=== PATIENT | female | born 1955 | race Two or more races ===

== ENCOUNTER → 2024-07-23 | Outpatient (CLI) | payer OTHER, MEDICAID, SELFPAY ==
--- NOTE | 2024-07-23 11:30 | XR_ITS ---
Examination: Pelvic ultrasound, transabdominal, complete Technique: Transabdominal ultrasound of the pelvis performed using grayscale imaging Date and time of exam: July 23, 2024 1127 hours INDICATIONS: Multiple uterine masses on pelvic sonogram November 03, 2023, the largest in the posterior uterine body 20 mm FINDINGS: Uterus 7.1 x 4.5 x 5.1 cm retroverted Uterine body mass 9 x 6 x 12 mm Hyperechoic mass in the lower uterine segment 19 x 20 x 25 mm Right ovary obscured by bowel gas Left ovary 16 x 13 x 15 mm arterial flow Endometrial stripe 0.7 cm IMPRESSION: Recommend transvaginal pelvic sonography follow-up to assess the lower uterine segment mass 19 x 20 x 25 mm
== END | disposition home or self-care (01) ==
PROVIDERS: PCP Internal Medicine; Referring Provider Internal Medicine; Visit Provider Internal Medicine
DX: D25.9 Leiomyoma of uterus, unspecified (principal)
CPT/HCPCS: 76856

== ENCOUNTER → 2024-08-10 | Outpatient (CLI) | payer OTHER, MEDICAID, SELFPAY ==
--- NOTE | 2024-08-10 15:30 | XR_ITS ---
Examination: Transvaginal ultrasound of the pelvis, complete Technique: Transvaginal sonographic images pelvis performed using shaffer scale imaging Exam date and time: August 10, 2024 1526 hours Indications, lower uterine segment mass 19 x 20 x 25 mm on pelvic sonogram July 23, 2024, pelvic pain history FINDINGS: Uterus 7.4 x 3.4 x 4.8 cm Endometrial stripe 0.9 cm Fundal uterine mass 2.0 x 1.8 x 2.2 cm Calcifications in the uterine body Right ovary 1.7 x 1.0 x 1.4 cm arterial flow Left ovary 1.6 x 1.1 x 1.4 cm arterial flow small calcifications IMPRESSION: 20 x 18 x 22 mm uterine fundal mass consistent with fibroid degeneration.
== END | disposition home or self-care (01) ==
PROVIDERS: PCP Internal Medicine; Referring Provider Internal Medicine; Visit Provider Internal Medicine
DX: R19.00 Intra-abdominal and pelvic swelling, mass and lump, unspecified site (principal)
CPT/HCPCS: 76830

== ENCOUNTER → 2024-08-31 | Outpatient (CLI) | payer OTHER, SELFPAY ==
--- NOTE | 2024-08-31 12:30 | XR_ITS ---
Examination: MRI lumbar spine without contrast Date and time of exam: August 31, 2024 1340 hours Comparison September 19, 2023 INDICATIONS: Low back pain beginning 3 years ago, radiating down the left leg Technique: Multiple MRI axial and sagittal sections lumbar spine. Sagittal T2-weighted images, TR 3500, TE 118 T1 weighted transverse sections, TR 688 T8.5, T2-weighted sagittal sections T1 weighted sagittal sections TR 621, TE 30 T2 axial sections, TR 4, 190, TE 84. Findings: Award Machine Operator film lumbar dextroscoliosis 30 degrees No lumbar fracture Diffuse lumbar disc desiccation Mild to moderate diffuse lumbar disc narrowing, most prominent L3-L4, L5-S1 No spondylolisthesis L5-S1 5 mm central lumbar disc bulge extending to the right intervertebral foramen with mild right L5 ganglionic compression L4-L5 6 mm central lumbar disc bulge partially extruded extending to the left foramen with mild left L4 ganglionic compression L3-L4 small foraminal disc bulges but no ganglionic compression L2-L3 no disc protrusion L1-L2 no disc protrusion IMPRESSION: Severe lumbar dextroscoliosis L5-S1 5 mm central lumbar disc bulge with mild right L5 ganglionic compression L4-5 6 mm central lumbar disc bulge with mild left L4 ganglionic compression
== END | disposition home or self-care (01) ==
PROVIDERS: PCP Internal Medicine; Referring Provider Internal Medicine; Visit Provider Internal Medicine
DX: M41.86 Other forms of scoliosis, lumbar region (principal); G95.20 Unspecified cord compression
CPT/HCPCS: 72148

== ENCOUNTER 2025-06-15 06:35 | Day surgery (SDC) | payer MEDICARE, SELFPAY ==
--- NOTE | 2025-06-12 07:33 | ESHP_ITS ---
RE: AMARA ZARATE : 1955 DATE OF ADMISSION: 06/15/2025 DATE OF SURGERY: 06/15/2025 This is a 69-year-old 3, para 3 with endometrial thickening and colposcopic biopsy showing a moderate cervical dysplasia, who presents for LEEP cone biopsy of the cervix and hysteroscopic exam and fractional dilatation and curettage. ALLERGIES: NO KNOWN DRUG ALLERGIES. MEDICATIONS: 1. Lisinopril 40 mg 1 p.o. daily. 2. Isosorbide 20 mg 1 p.o. daily. 3. Metoprolol 50 mg 1 p.o. daily. 4. Amlodipine 5 mg 1 p.o. daily. 5. Zetia 10 mg 1 p.o. daily. 6. Hydrocodone 7.5 mg-acetaminophen 325 mg p.o. daily p.r.n. pain. 7. Gabapentin 300 mg 1 p.o. daily. 8. Tizanidine 4 mg 1 p.o. daily. 9. Aspirin 81 mg 1 p.o. daily. 10. Clopidogrel 75 mg 1 p.o. daily. 11. Hydrochlorothiazide 50 mg 1 p.o. daily. 12. Metformin 500 mg 1 p.o. daily. PAST MEDICAL HISTORY: Chronic hypertension, type 2 diabetes mellitus, hyperlipidemia, coronary artery disease with placement of coronary artery stents x2 in 2014. FAMILY HISTORY: Father, cancer. Mother, liver problems. REVIEW OF SYSTEMS: She denies any chest pain, palpitations, cough, fever, shortness of breath or lower extremity pain. She denies any headache, change in vision or right upper quadrant pain. PHYSICAL EXAMINATION: VITAL SIGNS: Blood pressure 165/70, heart rate 56, respiration 18, temperature 98.7. HEENT: Oropharynx and sclerae are clear. LUNGS: Clear to auscultation bilaterally. HEART: Regular rate and rhythm. ABDOMEN: Nontender. EXTREMITIES: Nontender. SKIN: No gross rashes or lesions. NEUROLOGIC: No focal deficit. ASSESSMENT AND PLAN: Cervical dysplasia, endometrial thickening. PLAN: LEEP cone biopsy of the cervix, hysteroscopy and fractional dilatation and curettage. Informed consent was obtained. The patient was made aware of the risks, complications, alternatives and benefits of the proposed procedure and she agrees. DT: 07:17:13 TT: 07:32:00 Ref: [id number] - TID: [id number] MTDD
--- NOTE | 2025-06-14 06:35 | EKG_ITS ---
[facility] Test Date: 2025-06-14 Pat Name: AMARA ZARATE Department: Room: - Gender: Female Regulatory Compliance Engineer: ROLA : 1955 Requested By: Ochoa Hilario Order Number: [id number] Reading MD: Ochoa Hilario Measurements Intervals [place] Rate: 60 P: 74 NE: 177 QRS: 47 QRSD: 89 T: 51 QT: 406 QTc: 408 Interpretive Statements SINUS RHYTHM POSSIBLE LEFT ATRIAL ENLARGEMENT [-0.1mV P WAVE IN V1/V2] No previous ECG available for comparison /store/S0/[id number]/ecg/[id number].pdf
[2025-06-14 07:56] VITALS: BMI 31.1
[2025-06-14 09:15] LABS: Basophils # (Auto) 0.0 Thou/mm3 (0.0-0.2); Basophils % (Auto) 0 % (0-2.5); Eosinophils # (Auto) 0.2 Thou/mm3 (0.0-0.5); Eosinophils % (Auto) 2 % (0-10); Hematocrit 39.2 % (36.0-46.0); Hemoglobin 12.8 g/dL (12.0-16.0); Immature Granulocytes Auto 0.05 Thou/mm3 (0.00-0.00); Lymphocytes # (Auto) 2.5 Thou/mm3 (1.0-4.8); Lymphocytes % (Auto) 27 % (10-50); Mean Corpuscular HGB Conc 32.7 g/dl (31.0-37.0); Mean Corpuscular Hemoglobin 27.7 pg (25.0-35.0); Mean Corpuscular Volume 85 fL (80-100); Monocytes # (Auto) 1.0 Thou/mm3 (0.0-0.8); Monocytes % (Auto) 11 % (0-12); Neutrophils # (Auto) 5.4 Thou/mm3 (1.8-7.7); Neutrophils % (Auto) 59 % (37-80); Nucleated Red Blood Cell # 0.00 Thou/mm3 (0.00-0.00); Nucleated Red Blood Cell % 0 /100 WBC (0); Platelet Count 358 Thou/mm3 (140-440); RDW Standard Deviation 46.5 fL (36.4-46.3); Red Blood Count 4.62 Miln/mm3 (4.00-5.20); White Blood Count 9.2 Thou/mm3 (3.6-11.0)
[2025-06-14 09:28] LABS: INR 1.0 (0.9-1.3); Partial Thromboplastin Time 27.6 Seconds (22.0-36.0); Prothrombin Time 10.5 Seconds (9.0-12.2)
[2025-06-14 09:39] LABS: Alanine Aminotransferase 17 U/L (10-49); Albumin, Serum 5.0 gm/dL (3.4-4.8); Albumin/Globulin Ratio 1.9 (1.2-2.2); Alkaline Phosphatase 79 U/L (46-116); Anion Gap 8 (7-16); Aspartate Amino Transferase 23 U/L (0-34); BUN/Creatinine Ratio 14 Ratio (12-20); Bilirubin,Total 0.4 mg/dL (0.3-1.2); Blood Urea Nitrogen 10 mg/dL (9-23); Calcium 10.1 mg/dL (8.3-10.6); Calcium (Corrected) 10.1 mg/dL (8.5-10.1); Carbon Dioxide 25.9 mMol/L (20.0-31.0); Chloride 107 mMol/L (98-107); Creatinine (Component) 0.7 mg/dL (0.6-1.3); Estimated Creatinine Clearance 75.0 mL/min (>60); Globulin 2.7 gm/dL (2.3-3.5); Glucose 94 mg/dL (74-106); Osmolality,Calculated 280 (275-295); Potassium 4.1 mMol/L (3.4-5.1); Sodium 141 mMol/L (136-145); Total Protein 7.7 gm/dL (5.7-8.2); eGFR > 60 See Note
[2025-06-15] VITALS (7 sets, daily range): BP systolic 126–180; BP diastolic 48–80; PULSE 59–78; RESP 12–18; TEMP 36.2–36.7; O2SAT 95–98; BMI 30.9
--- NOTE | 2025-06-15 07:28 | CHAP ---
Prayed with patient. Family member was there to translate.
--- NOTE | 2025-06-15 09:20 | SUR.PHASEI ---
pt arrived to PACU via gurney drowsy but arouses to voice, breathing unlabored, peripad intact-clean and dry, report from Vicky WARD and Dr Hilario
--- NOTE | 2025-06-15 09:29 | PD.GYNPROC ---
Operative Note - CABLE TELEVISION PROGRAM DIRECTOR Procedure Date of procedure: 06/15/25 Procedure Performed: Postmenopausal endometrial Thickening Cervical dysplasia (CIN1 with dysplasia on endocervical curettings) Indication: Postmenopausal endometrial Thickening Cervical dysplasia (CIN1 with dysplasia on endocervical curettings) Pre-Op diagnosis: Postmenopausal endometrial Thickening Cervical dysplasia (CIN1 with dysplasia on endocervical curettings) Post-Op diagnosis: Postmenopausal endometrial Thickening Cervical dysplasia (CIN1 with dysplasia on endocervical curettings) Endometrial polyp(s) Anesthesia type: General Procedure description: After proper informed consent was obtained and the patient was made aware of the risks, complications, alternatives and benefits of the proposed procedure she was taken to the operating room where she underwent induction of general anesthesia.? She is placed in the dorsal lithotomy position.? A red rubber catheter was placed and the bladder drained the bladder of all its contents.? She was prepped and draped in usual sterile fashion.? A timeout was performed.? A bivalve insulated speculum was placed in the vagina.? The cervix was painted with Lugol's solution.? the cervix was circumferentially injected with a 10 cc solution of dilute vasopressin (20 units and 100 cc of injectable saline).? Using the 2.0 x 2.0 cm loop electrode the squamocolumnar junction was excised and the specimen inked at 12:00.? A 1.0 x 1.0 loop electrode was utilized to obtain a Top-Hat specimen of the Endo cervix.? Using a Kevorkian curette the endocervical canal was curetted and specimen placed on Telfa. Scant bleeding was noted and hemostasis achevied with the Bovie cautery. The cervix was dilated to accommodate the 5.5 mm Omni Hysteroscope. Using the Aquilex system and normal saline as the distending media the hysteroscopy was performed and a large 3 x 4 cm polyp was visualized in the uterine cavity.?There were two small endometrial polyps noted measuring 3 x 3 mm each. The Using the MyoSure Reach device the polypectomy was performed of the smaller polyps but the larger polyp was too large for the Myosure Reach Device so the Omni Scope 6.0 mm was used along the the Myosure XL Device to remove the larger polyp. The fluid deficit at the end of the MyoSure procedure was 250 cc.? The uterine cavity was curetted with specimen sent to pathology.?Hemostasis was achieved with the Bovie cautery and application of a Monsel solution on the cervix. All instruments were removed from the vagina.? Counts were correct.? She was reversed from general anesthesia in the supine position.? She was transferred to the recovery room in stable condition.? I discussed with the patient's daughter the nature of her condition, the intraoperative findings, the expectation for recovery, all questions answered. Specimen: other (1. Endometrial polyp(s) 2. Endocervical curettings 3. Endometrial Curettings. 4. LEEP cone specimen inked at 12. 5. Top hat specimen endocervix. ) Estimated blood loss (ml): 10 Findings: Atrophic ectocervical os and vagina Uterine prolapse Grade II Cystocele Grade II Stenotic endocervical canal Large 3 x 4 cm endometrial polyp Two smaller 3 x 3 mm endometrial polyps Complications: none Surgical staff Operation Date: 06/15/25 08:45 Case Staff Anesthesiologist: Ochoa Hilario Diagnosis Discharge Diagnosis (1) Endometrial polyp: Status: Acute (2) Dysplasia of cervix, low grade (IFRAH 1): Status: Acute (3) S/P LEEP (loop electrosurgical excision procedure): Status: Acute Problem List Completed Was Problem List Reviewed/Reconciled?: Yes
--- NOTE | 2025-06-15 09:45 | SUR.PHASEI ---
pt tolerating ice chips without difficulty swallowing or n/v
--- NOTE | 2025-06-15 10:30 | SUR.PHASEII ---
pt awake, alert, able to follow commands, breathing unlabored, peripad intact-clean and dry, VS stable, discharge instructions given with daughter Velvet present using telephone vice president talent management Fang ID#[id number], all questions answered, pt able to ambulate with steady gait to wheelchair, pt discharged via wheelchair with all belongings and copies of discharge paperwork.
== END 2025-06-15 10:30 | disposition home or self-care (01) ==
PROVIDERS: PCP Nurse Practitioner Family; Referring Provider Specialist; Visit Provider Specialist
PROC: 0UBC7ZZ Excision of Cervix, Via Natural or Artificial Opening (ICD-10-PCS; CPT 57522; principal; 2025-06-15 08:30)
PROC: 0U5B8ZZ Destruction of Endometrium, Via Natural or Artificial Opening Endoscopic (ICD-10-PCS; CPT 58563; 2025-06-15 08:30)
DX: N87.1 Moderate cervical dysplasia (principal); Z01.810 Encounter for preprocedural cardiovascular examination; Z78.0 Asymptomatic menopausal state; N84.0 Polyp of corpus uteri; N88.8 Other specified noninflammatory disorders of cervix uteri; N81.2 Incomplete uterovaginal prolapse; N88.2 Stricture and stenosis of cervix uteri; R93.89 Abnormal findings on diagnostic imaging of other specified body structures
CPT/HCPCS: 58558; 57522; 36415; 80053; 85025; 85610; 85730; 86850; 86900; 86901; 93005; A4217; A4649; J0690; J1100; J2371; J2598; J2704; J2765; J3010; J3490; A9270

== ENCOUNTER 2025-06-26 12:45 | Emergency (ER) | payer MEDICARE, SELFPAY ==
[2025-06-26 12:58] VITALS: BP 156/69; PULSE 66; RESP 16; TEMP 36.9; O2SAT 96; BMI 32.1
--- NOTE | 2025-06-26 13:03 | XR_ITS ---
Examination: Pelvic ultrasound, transabdominal, complete Technique: Transabdominal ultrasound of the pelvis performed using grayscale imaging Date and time of exam: June 26, 2025, 1322 hours INDICATIONS: Heavy vaginal bleeding today FINDINGS: Uterus 8.8 cm uterine fundal mass 3.6 x 2.5 x 3.0 cm Endometrial stripe 0.5 cm Ovaries obscured by bowel gas IMPRESSION: Uterine area of probable fibroid degeneration, 3.6 x 2.5 x 3.0 cm, recommend 3-month follow-up transvaginal pelvic sonography
--- NOTE | 2025-06-26 13:03 | PD.EDRME ---
Rapid Medical Screening Exam RME Arrival date/time: 06/26/25 12:45 69-year-old female present to the Emergency Department today stating that she had a LEEP procedure 11 days ago patient reports bleeding since yesterday Chief Complaint: Vaginal Bleeding Vital signs: Vital Signs Temperature 98.5 F 06/26/25 12:58 Pulse Rate 66 06/26/25 12:58 Respiratory Rate 16 06/26/25 12:58 Blood Pressure 156/69 H 06/26/25 12:58 Pulse Oximetry (%) 96 06/26/25 12:58 Oxygen Delivery Method Room Air 06/26/25 12:58 Exam: On exam hemodynamically stable does not appear ill or toxic Patient has lower back pain and abdominal pain Clinical Impression: Lab work imaging obtained
[2025-06-26 14:17] LABS: Basophils # (Auto) 0.0 Thou/mm3 (0.0-0.2); Basophils % (Auto) 0 % (0-2.5); Eosinophils # (Auto) 0.3 Thou/mm3 (0.0-0.5); Eosinophils % (Auto) 2 % (0-10); Hematocrit 38.0 % (36.0-46.0); Hemoglobin 12.2 g/dL (12.0-16.0); Immature Granulocytes Auto 0.09 Thou/mm3 (0.00-0.00); Lymphocytes # (Auto) 3.0 Thou/mm3 (1.0-4.8); Lymphocytes % (Auto) 21 % (10-50); Mean Corpuscular HGB Conc 32.1 g/dl (31.0-37.0); Mean Corpuscular Hemoglobin 27.5 pg (25.0-35.0); Mean Corpuscular Volume 86 fL (80-100); Monocytes # (Auto) 1.4 Thou/mm3 (0.0-0.8); Monocytes % (Auto) 10 % (0-12); Neutrophils # (Auto) 9.4 Thou/mm3 (1.8-7.7); Neutrophils % (Auto) 66 % (37-80); Nucleated Red Blood Cell # 0.00 Thou/mm3 (0.00-0.00); Nucleated Red Blood Cell % 0 /100 WBC (0); Platelet Count 387 Thou/mm3 (140-440); RDW Standard Deviation 46.5 fL (36.4-46.3); Red Blood Count 4.44 Miln/mm3 (4.00-5.20); White Blood Count 14.2 Thou/mm3 (3.6-11.0)
[2025-06-26 14:30] LABS: INR 1.0 (0.9-1.3); Partial Thromboplastin Time 27.4 Seconds (22.0-36.0); Prothrombin Time 11.1 Seconds (9.0-12.2)
[2025-06-26 14:34] LABS: Alanine Aminotransferase 14 U/L (10-49); Albumin, Serum 5.1 gm/dL (3.4-4.8); Albumin/Globulin Ratio 2.2 (1.2-2.2); Alkaline Phosphatase 86 U/L (46-116); Anion Gap 9 (7-16); Aspartate Amino Transferase 21 U/L (0-34); BUN/Creatinine Ratio 15 Ratio (12-20); Bilirubin,Total 0.4 mg/dL (0.3-1.2); Blood Urea Nitrogen 12 mg/dL (9-23); Calcium 9.7 mg/dL (8.3-10.6); Calcium (Corrected) 9.7 mg/dL (8.5-10.1); Carbon Dioxide 27.9 mMol/L (20.0-31.0); Chloride 103 mMol/L (98-107); Creatinine (Component) 0.8 mg/dL (0.6-1.3); Estimated Creatinine Clearance 64.1 mL/min (>60); Globulin 2.3 gm/dL (2.3-3.5); Glucose 100 mg/dL (74-106); Osmolality,Calculated 279 (275-295); Potassium 4.6 mMol/L (3.4-5.1); Sodium 140 mMol/L (136-145); Total Protein 7.4 gm/dL (5.7-8.2); eGFR > 60 See Note
[2025-06-26 14:35] LABS: Collection Type, Urine Clean Catch; Squamous Epithelial Cell,Urine 0 /hpf (0-5)
[2025-06-26 14:58] LABS: Bilirubin,Urine Negative (Negative); Blood,Urine 3+ (Negative); Budding Yeast,Urine Present; Clarity,Urine Turbid (Clear/Hazy); Color,Urine Yellow (Lt Yel-Yel); Glucose, Urine Negative (Negative); Ketones,Urine Negative (Negative); Leukocyte Esterase,Urine Positive (Negative); Nitrite,Urine Negative (Negative); PH,Urine 6.0 (5.0-7.0); Protein,Urine 2+ (Neg - Trace); RBC,Urine 6845 /hpf (0-3); Specific Gravity,Urine 1.017 (1.001-1.035); Urobilinogen,Urine Negative mg/dL (0.0-1.0); WBC,Urine 967 /hpf (0-5)
[2025-06-26 15:15] LABS: Culture Indicated,Urine Yes
--- NOTE | 2025-06-26 18:24 | PD.EDVAGBL ---
ED OB Contraction Preg RMI/HPI General Chief complaint: Vaginal Bleeding Stated complaint: VAG BLEEDING Time Seen by Provider: 06/26/25 18:24 Arrival date/time: 06/26/25 12:45 RME / HPI RME / HPI Narrative: 06/26/25 12:45 69-year-old female present to the Emergency Department today stating that she had a LEEP procedure 11 days ago patient reports bleeding since yesterday DR. NELSON MAIN ED EVALUATION: Patient s/p LEEP procedure on 06/15/2025 with noted brown discharge following surgery now presenting with ongoing gross vaginal bleeding x 24 hours having saturated 1/2 pack of pads with reported mild generalized weakness and lightheadedness. Also notes mild diffuse lower back pain. No near-syncope, chest pain, or shortness of breath. Currently on both Plavix and ASA for cardiac reasons. PMH: Coronary Artery Disease, Peripheral Vascular Disease, Hypercholesterolemia, Hypertension, Uterine Prolapse, Degenerative Disk Disease, Diabetes Mellitus Type 2 PSH: Coronary Stent Placement Allergies: None reported Social: Non-smoker, Non-drinker, No illicit drug abuse Exam: On exam hemodynamically stable does not appear ill or toxic Patient has lower back pain and abdominal pain Impression: Lab work imaging obtained Related Data Home Medications ?Medication ?Instructions ?Recorded ?Confirmed lisinopril 40 mg tablet 40 mg PO QDAY 12/10/17 06/14/25 metformin 500 mg tablet 500 mg PO BID 12/10/17 06/14/25 aspirin 81 mg tablet,delayed 81 mg PO QDAY 12/23/20 06/14/25 release isosorbide dinitrate 20 mg tablet 20 mg PO BID 12/23/20 06/14/25 metoprolol tartrate 50 mg tablet 50 mg PO BID 12/23/20 06/14/25 nitroglycerin 0.4 mg sublingual 0.4 mg buccal PRN PRN Chest Pain 12/23/20 06/14/25 tablet amlodipine 5 mg tablet 5 mg PO DAILY 06/14/25 06/14/25 clopidogrel 75 mg tablet 75 mg PO DAILY 06/14/25 06/14/25 ezetimibe 10 mg tablet 10 mg PO DAILY 06/14/25 06/14/25 gabapentin 300 mg capsule 300 mg PO HS 06/14/25 06/14/25 hydrocodone 7.5 mg-acetaminophen 1 tab PO BID PRN pain 06/14/25 06/14/25 325 mg tablet Previous Rx's ?Medication ?Instructions ?Recorded docusate sodium 100 mg capsule 100 mg PO BID #20 caps 06/26/25 (Colace) Allergies Allergy/AdvReac Type Severity Reaction Status Date / Time No Known Allergies Allergy Verified 06/15/25 07:25 Review of Systems Review of Systems Systems Reviewed: All systems reviewed, normal except as documented Past Medical History Past Medical History CARDIAC: Positive Cardiac Disorders, Coronary Artery Disease, Peripheral Vascular Disease, Hypercholesterolemia and Hypertension REPRODUCTIVE: Positive Previous Pregnancies (x3) and Uterine Prolapse (feels like it is) MUSCULOSKELETAL: Positive Musculoskeletal Disorders and Degenerative Disk Disease ENDOCRINE: Positive Endocrine Disorders and Diabetes Mellitus Type 2 OTHER HISTORY: Positive Hospitalization (coronary stents), Chicken Pox and Measles Family History FAMILY HISTORY: Positive Family Cancer and Family Surgery Surgical History SURGICAL: Positive Cardiac Surgery, Coronary Stent, Carotid Endarterectomy and Tonsillectomy ED Exam Narrative Physical exam: GEN. APPEARANCE: The patient is alert awake oriented X-3 under no distress, lying down comfortably, does not look ill/toxic. Patient has good eye contact. Patient is cooperative. VITALS: All vitals were reviewed and the pulse ox is 96%, which is normal according to my interpretation HEENT: Normocephalic, atraumatic and nontender. Pupils are equal and reactive. Oral mucosa is moist. NECK: Supple, nontender, no meningismus, no JVD. There is no thyromegaly and no lymphadenopathy. CHEST: Nontender on palpation no deformity and no crepitus. CARDIOVASCULAR: Heart regular rhythm, no murmur or gallop rub or extra beats. LUNGS: Clear to auscultation bilaterally with symmetrical chest rise. No laboring tachypnea or wheezing. No intercostal subcostal retraction. No rales and no rhonchi. ABDOMEN: Soft, flat, nontender to palpation, no guarding or rebound tenderness. There are no abnormal masses palpated. No pulsatile masses or bruits. Active and normal bowel sounds. PELVIC: Pooling of bright red blood in vault, appears to be related to post-surgical hemorrhage at the site of the LEEP procedure EXTREMITIES: Normal inspection and palpation. No edema. No cyanosis. Patient is able to move all 4 extremities well SKIN: Warm and dry, no rashes noted. MUSCULOSKELETAL: No lumbar or midline bony tenderness. There is no CVA tenderness. No paraspinal muscle spasm or tenderness. NEURO: Cranial nerves II through XII grossly intact. There are no focal neurologic deficits noted. GCS is 15 PSYCHIATRIC: Patient is in normal mood and affect, cooperative. LYMPHATICS: No major lymphadenopathy noted. Course Quality Measures none Orders Category Date Time Status Insert IV NOW Care 06/26/25 19:50 Completed Pelvic Exam X1 Care 06/26/25 20:33 Completed US pelvic complete Stat Exams 06/26/25 13:03 Completed CBC Stat Lab 06/26/25 13:59 Completed Comprehensive Metabolic Panel Stat Lab 06/26/25 13:59 Completed Partial Thromboplastin Time Stat Lab 06/26/25 13:59 Completed Prothrombin Time with INR Stat Lab 06/26/25 13:59 Completed UA, C/S IF [Urinalysis, C/S if Indicated] Stat Lab 06/26/25 14:14 Completed Urine Culture Stat Lab 06/26/25 14:14 Received Sodium Chloride 0.9% 1000 ml [Ns] 1,000 ml Med 06/26/25 18:40 Discontinued IV 999 mls/hr Vital Signs Vital signs: Vital Signs Temperature 98.5 F 06/26/25 12:58 Pulse Rate 66 06/26/25 12:58 Respiratory Rate 16 06/26/25 12:58 Blood Pressure 156/69 H 06/26/25 12:58 Pulse Oximetry (%) 96 06/26/25 12:58 Oxygen Delivery Method Room Air 06/26/25 12:58 PROCEDURES: Procedure Comment Surgicel Application: After cervical os was visualized, application of surgicel dressing applied to LEEPs prior surgical site. Direct pressure then applied with cessation of hemorrhage. Vaginal Bleeding MDM Narrative MDM Narrative: Scribe Attestation: IMila, am scribing for and in the presence of Dr. Nelson. Provider Notation: Although this document has been carefully reviewed, there may still be some phonetic and other typographical errors. These errors are purely grammatical due to imperfections in the software program and should not be construed in any way to compromise the substance of the patient's medical care during this visit. Patient s/p LEEP procedure on 06/15/2025 with noted brown discharge following surgery now presenting with ongoing gross vaginal bleeding x 24 hours having saturated 1/2 pack of pads with reported mild generalized weakness and lightheadedness. Also notes mild diffuse lower back pain. Please see PE findings. Laboratory findings, including CBC and serum chemistries, demonstrate elevated WBC of 14.2, stable hemoglobin of 12.2, and normal platelet count with no left shift or associated bandemia. Serum chemistries essentially unremarkable. UA demonstrates positive leukocyte esterase, hematuria, and pyuria with no bacteria evident, nitrate negative, culture pending. Patient was placed on bed and breakfast operator, hydrated aggressively, and monitored for extended period of time. Patient remained hemodynamically stable throughout ED course. Patient underwent application of surgicel to control hemorrhage at procedure site (please see procedure note). Recommend close F/U with LOCK TENDER CHIEF OPERATOR surgeon. Final diagnoses include S/P LEEP (loop electrosurgical excision procedure), Postoperative hemorrhage, and Fibroid uterus. Patient data External records reviewed:: [facility] previous records (Reviewed prior ED records from 11/03/23. Patient was seen for Chronic back pain.) Clinical information provided by:: patient Social determinants that could affect healthcare access:: none Patient has the following chronic illnesses:: Coronary Artery Disease, Peripheral Vascular Disease, Hypercholesterolemia, Hypertension, Uterine Prolapse, Degenerative Disk Disease, Diabetes Mellitus Type 2 How is presenting disease/condition affected by chronic disease/condition?: exacerbated by Evaluation data The following diagnostics were reviewed and interpreted by me:: lab results and radiology exam(s) Lab and/or radiology exams considered but not ordered:: None Interpretation Summary: RADIOLOGY Pelvis US: FINDINGS: Uterus 8.8 cm uterine fundal mass 3.6 x 2.5 x 3.0 cm Endometrial stripe 0.5 cm Ovaries obscured by bowel gas IMPRESSION: Uterine area of probable fibroid degeneration, 3.6 x 2.5 x 3.0 cm, recommend 3-month follow-up transvaginal pelvic sonography Medications / Prescriptions Medications or Prescriptions considered but not ordered:: None Medication administrations:: Medication Administration History Discontinued Medications Sodium Chloride (Ns) 1,000 mls @ 999 mls/hr IV .[id number] ONE Stop: 06/26/25 19:40 Last Infusion: 06/26/25 20:53 Dose: Infused Documented By: Admin: 06/26/25 19:53 Dose: 999 mls/hr Documented By: JANET See above if any Consultations Consultation(s) initiated? (list below): No Diagnosis Vaginal Bleeding Differential Diagnosis: menometrorrhagia, vaginal bleeding and other (Uterine fibroid) Most likely diagnosis given after review of the tests above:: S/P LEEP (loop electrosurgical excision procedure), Postoperative hemorrhage, Fibroid uterus Admission Indicated Admission indicated?: not indicated Explain why admission is indicated or not indicated:: Patient does not meet admission criteria Admission Request Was there a request for admission?: No Disposition Plan Disposition Plan: Discharge Discharge Attestation Discharge Attestation: The patient and all family members were given an opportunity to ask questions and understood the discharge instructions. Discharge instructions specifically effects, indications for sooner follow up or return to the emergency department, and the expected course of current diagnosis. Patient condition: Stable Discharge Plan Plan Patient Disposition: HOME (Self Care) Discharge Disposition comment: STABLE Prescriptions/Referrals Prescriptions/Med Rec: New docusate sodium [Colace] 100 mg capsule 100 mg PO BID Qty: 20 0RF No Action metformin 500 mg Tablet 500 mg PO BID lisinopril 40 mg Tablet 40 mg PO QDAY isosorbide dinitrate 20 mg tablet 20 mg PO BID metoprolol tartrate 50 mg Tablet 50 mg PO BID aspirin 81 mg Tablet,Delayed Release (Dr/Ec) 81 mg PO QDAY nitroglycerin 0.4 mg Tablet, Sublingual 0.4 mg BUCCAL PRN PRN (Reason: Chest Pain) gabapentin 300 mg capsule 300 mg PO HS Patient Comments: TAKE ONE CAPSULE BY MOUTH AT BEDTIME ezetimibe 10 mg tablet 10 mg PO DAILY Patient Comments: TAKE ONE TABLET BY MOUTH EVERY DAY FOR CHOLESTEROL hydrocodone-acetaminophen 7.5-325 mg tablet 1 tab PO BID PRN (Reason: pain) amlodipine 5 mg tablet 5 mg PO DAILY Patient Comments: TAKE ONE TABLET BY MOUTH EVERY DAY FOR BLOOD PRESSURE clopidogrel 75 mg tablet 75 mg PO DAILY Patient Comments: TAKE ONE TABLET BY MOUTH EVERY DAY FOR THE HEART Referrals: NADIRA EASON [Primary Care Provider] - In 1 week Problem List Clinical Impression: S/P LEEP (loop electrosurgical excision procedure), Postoperative hemorrhage, Fibroid uterus Impression comment: Postoperative hemorrhage Patient/Caregiver Discharge Instructions Discharge Activity: activity as tolerated Education Materials: LEEP Additional Instructions: Increase fluids. Avoid bearing down/(Valsalva maneuvers) follow-up with DIE CASTER within 3 to 5 days. Return if worsening i.e. increasing vaginal bleeding i.e. greater than 1 pad per hour lightheadedness dizziness chest pain or shortness of breath generally worsening illness Print Language: Burmese Stand Alone Forms: [employer] Award Info., Patient Portal Info Letter
[2025-06-26 18:51] VITALS: BP 192/64; PULSE 76; RESP 16; TEMP 36.8; O2SAT 100
[2025-06-26] MEDS: SODIUM CHLORIDE 0.9% 1000 ML 1,000 ML 999 ML IV (19:53)
[2025-06-26 19:59] VITALS: BP 143/88; PULSE 71; RESP 18; O2SAT 98
[2025-06-26 21:20] VITALS: BP 195/86; PULSE 81; RESP 19; TEMP 37.2; O2SAT 99
== END 2025-06-26 22:41 | disposition home or self-care (01) ==
PROVIDERS: Nurse Practitioner Primary Care; Emergency Provider Emergency Medicine; PCP Nurse Practitioner Family
DX: N93.9 Abnormal uterine and vaginal bleeding, unspecified (principal); E11.51 Type 2 diabetes mellitus with diabetic peripheral angiopathy without gangrene; E78.00 Pure hypercholesterolemia, unspecified; I10 Essential (primary) hypertension; I25.10 Atherosclerotic heart disease of native coronary artery without angina pectoris; Z79.02 Long term (current) use of antithrombotics/antiplatelets; Z79.82 Long term (current) use of aspirin; Z79.84 Long term (current) use of oral hypoglycemic drugs; Z86.018 Personal history of other benign neoplasm; Z90.89 Acquired absence of other organs; Z95.5 Presence of coronary angioplasty implant and graft
CPT/HCPCS: 36415; 76856; 80053; 81001; 85025; 85610; 85730; 87086; 96360; 99283; J7030